=== PATIENT | female | born 1995 | race Caucasian/White ===

== ENCOUNTER 2017-09-11 19:37 | Emergency (ER) | payer OTHER ==
[2017-09-11 21:12] LABS: BASO % 0.6 % (0.0-1.0); EOS # 0.1 10^3/uL (0.0-0.50); EOS % 1.7 % (0.0-3.0); HEMATOCRIT 41.5 % (36.0-47.0); HEMOGLOBIN 14.2 g/dl (12.0-16.0); IMMATURE GRANULOCYTE % 0.2 % (0-3.0); LYMPH # 2.1 10^3/uL (1.5-6.5); LYMPH % 39.5 % (24.0-44.0); MEAN CORPUSCULAR HEMOGLOBIN 29.3 pg (27.0-33.0); MEAN CORPUSCULAR HGB CONC 34.2 g/dl (32.0-36.5); MEAN CORPUSCULAR VOLUME 85.6 fl (80.0-96.0); MONO # 0.7 10^3/uL (0.0-0.8); MONO % 12.7 % (0.0-5.0); NEUTROPHILS # 2.4 10^3/uL (1.8-7.7); NEUTROPHILS % 45.3 % (36.0-66.0); PLATELET COUNT, AUTOMATED 240 10^3/uL (150-450); RED BLOOD COUNT 4.85 10^6/uL (4.00-5.40); RED CELL DISTRIBUTION WIDTH 12.1 % (11.5-14.5); WHITE BLOOD COUNT 5.2 10^3/uL (4.0-10.0)
[2017-09-11 21:15] LABS: KETONE, URINE AUTO RFX NEGATIVE (NEGATIVE); LEUKOCYTE ESTERASE UR AUTO RFX NEGATIVE (NEGATIVE); MUCUS, URINE RFX SMALL (NEGATIVE); NITRITE, URINE AUTO RFX NEGATIVE (NEGATIVE); RBC, URINE AUTO RFX 2 /HPF (0-3); SPECIFIC GRAVITY UR AUTO RFX 1.011 (1.002-1.035); SQUAM EPITHELIAL CELL UR AURFX 2 /HPF (0-6); WBC, URINE AUTO RFX 0 /HPF (0-3)
[2017-09-11] MEDS: NS 1,000 ML IV (21:23)
[2017-09-11] MEDS: GI COCKTAIL 50ML BTL(HYOSCYAMINE/MAALOX/LIDOCAINE VISCOUS)(1:3:1) PO (21:23)
[2017-09-11] MEDS: ONDANSETRON 4MG/2ML VIAL (J2405) IV (21:23)
[2017-09-11 21:27] LABS: CONTROL LINE HCG INT CTR LINE PRESENT; HCG, SERUM QUALITATIVE NEGATIVE (NEGATIVE)
[2017-09-11 21:37] LABS: ALBUMIN 4.1 GM/DL (3.2-5.2); ALBUMIN/GLOBULIN RATIO 0.98 (1.00-1.93); ALKALINE PHOSPHATASE 47 U/L (45-117); ALT/SGPT 15 U/L (12-78); AMYLASE 27 U/L (25-115); ANION GAP 6 MEQ/L (8-16); AST/SGOT 19 U/L (7-37); BILIRUBIN,DIRECT 0.1 MG/DL (0.0-0.2); BILIRUBIN,TOTAL 0.5 MG/DL (0.2-1.0); BLOOD UREA NITROGEN 9 MG/DL (7-18); CALCIUM LEVEL 8.7 MG/DL (8.5-10.1); CARBON DIOXIDE LEVEL 28 MEQ/L (21-32); CHLORIDE LEVEL 106 MEQ/L (98-107); GLOMERULAR FILTRATION RATE > 60.0 (>60); GLUCOSE, FASTING 86 MG/DL (70-100); LIPASE 136 U/L (73-393); POTASSIUM SERUM 3.3 MEQ/L (3.5-5.1); SODIUM LEVEL 140 MEQ/L (136-145); TOTAL PROTEIN 8.3 GM/DL (6.4-8.2)
[2017-09-11] MEDS: POTASSIUM CHLORIDE 10 MEQ SR TABLET PO (22:02)
[2017-09-11 22:14] LABS: MAGNESIUM LEVEL 2.1 MG/DL (1.8-2.4)
[2017-09-11] MEDS ORDERED: ISOVUE-370 76% 100ML VIAL (Q9967) As Ordered (22:20)
== END 2017-09-11 23:40 | disposition home or self-care (01) ==
LOC: M ED 19:37
DX: K52.9 Noninfective gastroenteritis and colitis, unspecified (principal)
CPT/HCPCS: J2405

== ENCOUNTER → 2019-05-23 | Outpatient (CLI) | payer MEDICAID, OTHER ==
[~2019-05-23] MED LIST: PREVTAB2 PO; ZOFR4TAB14 PO
--- NOTE | 2019-05-23 16:14 | REP ---
OB ULTRASOUND: Real-time sonographic evaluation of the gravid uterus performed. There is a single living intrauterine gestation. Estimated gestational age is 18 weeks 4 days, EDC 10/20/2019. Today's measurements indicate appropriate growth. BPD 41 mm = 18 weeks 4 days, 40th percentile HC 155 mm = 18 weeks 3 days, 45th percentile AC 135 mm = 18 weeks 6 days, 57th percentile FL 27 mm = 18 weeks 1 days, 39th percentile HC/AC ratio 1.15, within normal range. Estimated weight 246 grams, 45th percentile. Cervix is closed and measures 3.0 cm in length. heart rate 147 beats per minute. SEEN/GROSSLY UNREMARKABLE Lateral ventricles yes Posterior fossa yes Upper lip yes Four-chamber heart yes LVOT yes RVOT yes Stomach yes Cord insertion yes Three vessel cord yes Kidneys yes Bladder yes Spine yes position: Breech. Placenta: Anterior and grade 1 with on previa or abruption. Amniotic fluid: Within normal limits. Electronically Signed by Efra Mckee MD 05/24/2019 11:24 A
== END ==
LOC: M RAD 14:15
PROVIDERS: ATTEND Advanced Practice Midwife
DX: Z34.02 Encounter for supervision of normal first pregnancy, second trimester (principal); Z3A.18 18 weeks gestation of pregnancy

== ENCOUNTER → 2019-09-28 | Outpatient (REF) | payer OTHER | LOC: M SFHCWAGY 09:57 | PROVIDERS: ATTEND Advanced Practice Midwife | DX: Z34.03 Encounter for supervision of normal first pregnancy, third trimester (principal) ==

== ENCOUNTER → 2019-10-17 | Outpatient (REF) | payer OTHER | LOC: M PLALAB 10:57 | PROVIDERS: ATTEND Advanced Practice Midwife | DX: Z34.03 Encounter for supervision of normal first pregnancy, third trimester (principal) ==

== ENCOUNTER 2019-10-26 12:18 | Inpatient (IN) | payer OTHER ==
[~2019-10-26] VITALS: Ht 160 cm; Wt 78.6 kg
[2019-10-26 12:49] VITALS: BP 127/74
[2019-10-26] MEDS ORDERED: LACTATED RINGER'S 1000 ML IV STA (13:09)
[2019-10-26 13:26] LABS: HEMATOCRIT 35.7 % (36.0-47.0); HEMOGLOBIN 11.9 g/dl (12.0-15.5); MEAN CORPUSCULAR HEMOGLOBIN 27.9 pg (27.0-33.0); MEAN CORPUSCULAR HGB CONC 33.3 g/dl (32.0-36.5); MEAN CORPUSCULAR VOLUME 83.8 fl (80.0-96.0); PLATELET COUNT, AUTOMATED 198 10^3/uL (150-450); RED BLOOD COUNT 4.26 10^6/uL (4.00-5.40); WHITE BLOOD COUNT 9.7 10^3/uL (4.0-10.0)
--- NOTE | 2019-10-26 13:26 | HPEPDOC ---
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 BREAST: . ABDOMEN: Gravid and non-tender to touch. FETUS: Is vertex (VTX) by sterile vaginal examination (SVE), fetus is vertex (VTX) by Neil. HEART RATE: Regular rate and rhythm. LUNGS: Clear to auscultation (CTA). EXTREMITIES: No edema. No clonus. Deep tendon reflexes (DTRs) + 2. Laboratory Data 24H LABS Laboratory Tests 2 10/26/19 12:32: Serology Scanned Report Hepatitis B Testing Pertinent Laboratoy Data Blood Type: A+ RBC Antibody Screen: Negative HIV: Negative Hepatitis B: Negative Hepatitis C: Negative Rapid Plasma Reagin: Nonreactive Rubella: Immune Chlamydia/Gonorrhea: Negative Group B Streptococcus: Negative Glucose Tolerance Test: 106 Anatomy Ultrasound Ultrasound Date: May 23, 2019 Placenta Location: Anterior Normal Anatomy: Yes Placenta Previa: No Estimated Weight (grams): 246 (45%) Other Ultrasounds 03/29/2019 dating EGA 10w6d FH 166 09/14/2019 presentation vertex Steroid Therapy Steroid Therapy: No Vaginal Examination Dilation: Fingertip Effacement: 50% Station: -3 Cervical Consistency: Medium Cervical Position: Posterior Presentation: Cephalic presentation Assessment Heart Rate (FHR): 145 Variability: Moderate Accelerations: Positive Decelerations: None Tocometer Contractions: No Strength: palpated as mild Multi-drug resistant Organism: No history of MDRO Assessment/Plan Assessment Harsh is a 24-year-old (G)1 para (P)0-0-0-0 at 40+6 weeks by 10-week ultrasound. Presents to Labor and Delivery (L&D) for post term induction of labor. Denies regular UC, LOF, bleeding. Reports good activity. Plan Admit and orien per consult Dr Almaraz Fuel Oil Clerk and consent. Diet: regular. Group B Streptococcus (GBS) negative. Labs and intravenous (IV) per unit protocol. Counseled on misoprostol, Pitocin and induction of labor (IOL). Lactated Ringers (LR): Bolus 500 mL, then at saline lock. Plans epidural for labor coping Anticipate normal spontaneous delivery (). C-S as appropriate. Svetlana Kramer CNM Oct 26, 2019 13:25
[2019-10-26] MEDS: miSOPROStol 50 MCG 1/2 TAB (S0191) PO SCH ×3 (14:17→23:08)
[2019-10-26 14:23] VITALS: BP 113/61
[2019-10-26 15:41] VITALS: BP 120/71
[2019-10-26 17:14] VITALS: BP 131/59
[2019-10-26 18:17] VITALS: BP 116/63
[2019-10-26 18:50] VITALS: BP 119/67
[2019-10-27] VITALS (43 sets, daily range): BP systolic 92–145; BP diastolic 52–83
[2019-10-27] MEDS: miSOPROStol 50 MCG 1/2 TAB (S0191) PO SCH (01:30)
--- NOTE | 2019-10-27 01:38 | IPNPDOC ---
Text Note Date of Service The patient was seen on 10/27/19. NOTE Progress Requesting pain/sleep medication. Rates pain -11/10 Cat I tracing. UC irregular SVE -/-2, posterior, scant bloody show Stadol/phenergan. Continue misoprostol VS,Fishbone, I+O VS, Fishbone, I+O Laboratory Tests 10/26/19 13:00 Vital Signs Date Time Temp Pulse Resp B/P (MAP) Pulse Ox O2 Delivery O2 Flow Rate FiO2 10/26/19 18:50 90 16 119/67 (84) 10/26/19 15:41 98.9 Svetlana Kramer CNM Oct 27, 2019 01:38
[2019-10-27] MEDS ORDERED: BUTORPHANOL 2 MG/ML INJ (J0595) IV ONE (01:45)
[2019-10-27] MEDS ORDERED: PROMETHAZINE INJ 25 MG/ML VIAL (J2550) IV ONE (01:45)
[2019-10-27] MEDS ORDERED: FENTANYL 2MCG/ML ROPIVACAINE 0.2% IN 0.9% NACL 100ML IVBAG As Ordered ONE (08:55)
[2019-10-27] MEDS: LR 1,000 ML IV SCH ×3 (09:20→15:31)
[2019-10-27] MEDS ORDERED: EPIDURAL/PCA KEYS XX PRN (09:45)
[2019-10-27] MEDS ORDERED: REFRIGERATOR IV KEYS XX PRN (09:45)
[2019-10-27] MEDS ORDERED: diphenhydrAMINE 50MG/ML VIAL (J1200) IV PRN (09:45)
[2019-10-27] MEDS ORDERED: FENTANYL/ROPIVACAINE/NACL BAG 100 ML EPIDURAL SCH (09:45)
[2019-10-27] MEDS ORDERED: EPIDURAL COMMENT XX SCH (09:45)
[2019-10-27] MEDS ORDERED: LACTATED RINGER'S 1000 ML IV PRN (09:45)
[2019-10-27] MEDS ORDERED: NALOXONE INJ 0.4MG/1ML VIAL (J2310 PER 1MG) IV PRN (09:45)
[2019-10-27] MEDS ORDERED: ONDANSETRON 4MG/2ML VIAL IV PRN (09:45)
[2019-10-27] MEDS: ePHEDrine SULFATE 25 MG/5 ML(5MG/ML) SYRINGE IV PRN ×3 (10:26→10:33)
[2019-10-27] MEDS ORDERED: LR 1,000 ML IV SCH (11:05)
[2019-10-27] MEDS ORDERED: OXYTOCIN 30 UNITS IN 0.9% NaCl 500ML IV BAG (J2590) As Ordered ONE (11:06)
[2019-10-27] MEDS ORDERED: OXYTOCIN DRIP 30 UNITS in IV 1 EA IV SCH ×2 (11:15→18:00)
--- NOTE | 2019-10-27 17:41 | DNPDOC ---
[facility] Delivery Note Delivery Note DATE OF DELIVERY: 10/27/2019 TIME OF : 1657 GENDER:, Female. APGARS: 8 and 9. WEIGHT:, 3460 grams or 7 pounds 10 ounces. LACERATIONS:. First degree midline laceration and right labial ANESTHESIA: Epidural. ESTIMATED BLOOD LOSS: 300ml COUNTS: 5 laparotomy sponges accounted for prior to after delivery. One sharps removed delivery field. DELIVERY NOTE: 10/27/2019, Mrs. Arellano a 24-year-old 1, now para 1, had a spontaneous vaginal delivery of viable female , Apgars, Apgars 8 and 9. Weight was 3460 g or 7 lbs. 7 oz. Head was delivered [occiput anterior (OA). Nuchal cord was manually reduced followed by delivery of the shoulders and corpus. was handed to mom with a good cry. Cord was clamped times two and was cut by the father of baby under my direction. Placenta was then drained and delivered grossly intact. A premixed bag of 500 mL of normal saline with 30 units of Pitocin was then bolused along with uterine massage until the uterus was firm. On inspection,. There was a right labial and first-degree midline laceration which was repaired with 3-0 Vicryl. On reinspection, cervix, vagina, perineum was grossly intact and hemostatic. Mom and baby in recovery on stable condition. The couples decided to remain in daughter, LAURE Gray MD. Oct 27, 2019 17:41
[2019-10-27] MEDS ORDERED: MOM 30ML SUSPENSION UDC PO PRN (17:45)
[2019-10-27] MEDS ORDERED: METHYLERGONOVINE MALEATE 0.2 MG TAB PO PRN (17:45)
[2019-10-27] MEDS ORDERED: IBUPROFEN 600 MG TAB PO PRN (17:45)
[2019-10-27] MEDS ORDERED: ACETAMINOPHEN 500 MG TAB PO PRN (17:45)
[2019-10-27] MEDS ORDERED: RHOGAM 300 MCG (1500 IU) INJ (J2790) IM SCH (17:45)
[2019-10-27] MEDS ORDERED: IBUPROFEN 800 MG TAB PO PRN (17:45)
[2019-10-27] MEDS ORDERED: DOCUSATE SODIUM 100 MG CAP PO PRN (17:45)
[2019-10-27] MEDS ORDERED: MEASLES,MUMPS,RUBELLA VACCINE INJ (MMR-II) (90707) SC SCH (17:45)
[2019-10-27] MEDS ORDERED: ACETAMINOPHEN TAB 650MG DOSE (2X325MG) PO PRN (17:45)
[2019-10-27] MEDS ORDERED: DIBUCAINE 1% OINTMENT 30GM TOP PRN (17:45)
[2019-10-27] MEDS ORDERED: ANUSOL HC CREAM 30GM TOP PRN (17:45)
[2019-10-27] MEDS ORDERED: SLF 3 ML SYR IV PRN (19:30)
[2019-10-27] MEDS: SLF 3 ML SYR IV SCH (21:32)
[2019-10-28 06:00] VITALS: BP 108/56
[2019-10-28] MEDS: SLF 3 ML SYR IV SCH ×3 (06:00→22:00)
[2019-10-28] MEDS: PRENATAL VITAMINS CHEWABLE TABLET PO SCH (08:10)
--- NOTE | 2019-10-28 13:52 | IPNPDOC ---
Progress Note Date of Service: Oct 28, 2019 Day#: 1 Progress Note SUBJECT: Harsh is a 24-year-old status post uncomplicated spontaneous vaginal delivery at 41 weeks' gestation at 1657 on 10/27/19 of a living female weighting 7 pounds 10 ounces/3460 grams with post vaginal laceration and repair of a 1st degree midline laceration and right labial laceration. She is doing well and has been ambulating, voiding spontaneously without issue and tolerating regular diet. Breast feeding without issue. OBJECTIVE: VITAL SIGNS: Within normal limits, afebrile. Alert and oriented times three. Breath sounds clear to auscultation. Heart rate: Regular rate and rhythm, no murmurs, rubs or gallops. Abdomen: Fundus firm at U-1. Soft, NTTP. Minimal lochia. ASSESSMENT: Day 1 PLAN: 1. Discharge to home tomorrow. 2. Tylenol and Motrin for pain. 3. Encourage breast feeding and ambulation. VS, I&O, 24H, Fishbone Vital Signs/I&O Vital Signs Date Time Temp Pulse Resp B/P (MAP) Pulse Ox O2 Delivery O2 Flow Rate FiO2 10/28/19 06:00 98.7 79 20 108/56 (73) 99 Room Air I&O- Last 24 Hours up to 6 AM 10/28/19 05:59 Intake Total 6020.1 ml Output Total 2475 ml Balance 3545.1 ml ELIAS BALES CNM Oct 28, 2019 13:51
[2019-10-28 18:00] VITALS: BP 115/72
[2019-10-29 06:00] VITALS: BP 119/67
[2019-10-29] MEDS: SLF 3 ML SYR IV SCH (06:00)
[2019-10-29] MEDS: PRENATAL VITAMINS CHEWABLE TABLET PO SCH (08:42)
[2019-10-29] MEDS ORDERED: IBUP80TA PO (11:38)
[2019-10-29] MEDS ORDERED: ACET-683 PO (11:38)
== END 2019-10-29 12:05 | disposition home or self-care (01) | DRG 560 ==
LOC: M LDI 12:18 → M OBS 10-27 19:03
PROVIDERS: ADMIT Advanced Practice Midwife; ATTEND Obstetrics & Gynecology
PROC: 3E0P7GC Introduction of Other Therapeutic Substance into Female Reproductive, Via Natural or Artificial Opening (ICD-10-PCS; 2019-10-26)
PROC: 10E0XZZ Delivery of Products of Conception, External Approach (ICD-10-PCS; principal; 2019-10-27)
PROC: 0HQ9XZZ Repair Perineum Skin, External Approach (ICD-10-PCS; 2019-10-27)
DX: O48.0 Post-term pregnancy (principal); O70.0 First degree perineal laceration during delivery; Z3A.40 40 weeks gestation of pregnancy; Z37.0 Single live birth

== ENCOUNTER → 2020-06-18 | Outpatient (CLI) | payer BC ==
[~2020-06-18] MED LIST changes: +ACET-683 PO; +IBUP80TA PO
--- NOTE | 2020-06-18 16:24 | REP ---
INDICATION: ANATOMY. Supervision of . COMPARISON: None. TECHNIQUE: Transabdominal obstetric sonography. FINDINGS: Scanning through the gravid uterus demonstrates a viable single intrauterine gestation in breech lie. motion is observed and heart rate is recorded at 140 beats per minute. A posterior placenta is seen, grade 1, without evidence of placenta previa. Amniotic fluid is subjectively normal. Closed cervical length is measured at 3.9 cm transabdominally. No extrauterine abnormality is observed. Amniotic fluid is subjectively normal. No anomaly is seen. The following anatomic structures are identified and felt to be sonographically unremarkable: cranium, choroid plexus, cavum, cerebellum and posterior fossa, face and profile, lungs, four-chamber heart with left and right ventricular outflow tract views, diaphragm, left-sided stomach, abdominal wall cord insertion, three-vessel umbilical cord, kidneys and bladder, spine, and upper and lower extremities. Biometry chart: BPD 4.1 cm, 18 weeks 3 days Head circumference 16.3 cm, 19 weeks 0 days Abdominal circumference 14.5 cm, 19 weeks 6 days Femur length 3.2 cm, 19 weeks 6 days Humeral length 3.1 cm, 20 weeks 2 days HC AC ratio normal 1.12 Cephalic index normal 0.67 (0.70-0.86 close) Estimated weight 306 g, 0 lb 10 oz, 83rd percentile for 19 weeks 0 days IMPRESSION: Viable single intrauterine gestation at 19 weeks 3 days by today's composite sonographic criteria. HARSHA by today's sonography November 09, 2020. No complication identified. anatomic survey is felt to be complete. <Electronically signed by Prashant Winston > 06/18/20 9917
== END ==
LOC: M WHC 13:57
PROVIDERS: ATTEND Advanced Practice Midwife
DX: Z34.82 Encounter for supervision of other normal pregnancy, second trimester (principal)

== ENCOUNTER → 2020-10-17 | Outpatient (REF) | payer BC | LOC: M SFHCWAGY 17:18 | PROVIDERS: ATTEND Advanced Practice Midwife | DX: Z36.89 Encounter for other specified antenatal screening (principal) ==

== ENCOUNTER → 2020-11-12 | Outpatient (CLI) | payer BC | LOC: M LABSMTC 11:27 | PROVIDERS: ATTEND Specialist | DX: Z20.822 Contact with and (suspected) exposure to COVID-19 (principal) ==

== ENCOUNTER 2020-11-14 08:09 | Inpatient (IN) | payer BC ==
[~2020-11-14] VITALS: Ht 162.6 cm; Wt 77.4 kg
[2020-11-14] VITALS (29 sets, daily range): BP systolic 91–134; BP diastolic 51–85
[2020-11-14] MEDS ORDERED: PRENTAB9 PO (08:27)
[2020-11-14] MEDS ORDERED: LACTATED RINGER'S 1000 ML IV STA (08:53)
[2020-11-14] MEDS ORDERED: OXYTOCIN DRIP 30 UNITS in IV 1 EA IV PRN (08:55)
[2020-11-14] MEDS ORDERED: LIDOCAINE 1% MDV 20ML VIAL INFIL PRN (08:55)
[2020-11-14] MEDS ORDERED: METHYLERGONOVINE MALEATE 0.2 MG/ML VIAL (J2210) IM PRN (08:55)
[2020-11-14] MEDS ORDERED: miSOPROStol 50MCG 1/2 TABLET PO ONE (09:00)
--- NOTE | 2020-11-14 09:09 | HPEPDOC ---
Obstetrical History & Physical General Date of Admission November 14, 2020 at 08:09 History of Present Illness Chief Complaint: Induction of labor Information Provided By: Patient Age: 25 : 2 Term: 1 Pre-term: 0 Abortions: 0 Livin Care Care: Good Care Dating Final EDC by: 1st trimester (US) EGA at Admission: 40 (+2) Antepartum Course Pre- weight (lbs.): 151 Admission Weight (lbs.): 171 Past Medical History Past Obstetrical History : Past Obstetrical History: Primgravida (2019) Type of Delivery: Spontaneous Vaginal Del. 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: No pertinent history Past Medical History Surgical History: Denies/None Family History Significant Family History: No pertinent family hx Social History Marital Status: Family situation: Spouse/partner home Psychosocial History: No pertinent psych hx * Smoker: non-smoker Alcohol: Denies Drugs: denies Abuse Violence Screening Have you been hit/kicked/slapp: No Have you been sexually assault: No Imunizations Tdap status: declined Allergies Coded Allergies: No Known Allergies (Unverified , 10/26/19) Medications Scheduled No.137/Iron/Folic Acd ( Vitamin Tablet) 1 Each Tablet, 1 TAB PO DAILY Physical Examination Physical Examination GENERAL: Alert and oriented times three. BREAST: . ABDOMEN: Gravid and non-tender to touch. FETUS: Is vertex (VTX) by sterile vaginal examination (SVE), fetus is vertex (VTX) by Neil. EFW 7.5-8# HEART RATE: Regular rate and rhythm. LUNGS: Clear to auscultation (CTA). EXTREMITIES: No edema. No clonus. Deep tendon reflexes (DTRs) + 2. Laboratory Data 24H LABS Laboratory Tests 2 11/14/20 08:47: Serology Scanned Report Hepatitis B Testing Pertinent Laboratoy Data Blood Type: A+ RBC Antibody Screen: Negative HIV: Negative Hepatitis B: Negative Hepatitis C: Negative Rapid Plasma Reagin: Nonreactive Rubella: Immune Chlamydia/Gonorrhea: Negative Group B Streptococcus: Negative Quad Screen Test: Declined Glucose Tolerance Test: 94 Anatomy Ultrasound Ultrasound Date: Jun 18, 2020 Placenta Location: Posterior Normal Anatomy: Yes Placenta Previa: No Estimated Weight (grams): 306 (83%) Other Ultrasounds 03/19/2020 6w 0d HARSHA 11/12/2020 Steroid Therapy Steroid Therapy: No Vaginal Examination Dilation: 3 cm Effacement: 50% Station: -2 Cervical Consistency: Medium Cervical Position: Middle Presentation: Cephalic presentation Assessment Heart Rate (FHR): 145 Variability: Moderate Accelerations: Positive Decelerations: None Tocometer Contractions: No Assessment/Plan Assessment Harsh is a 25-year-old (G)2 para (P)1-0-0-1 at 40+2 weeks by 6-week ultrasound. Presents to Labor and Delivery (L&D) postdates induction of labor. Reports good movement. Denies LOF, bleeding or regular UC. has been complicated by close interconceptual spacing. Last delivery 10/27/2019. Plan Admit and orient. Mash Grinder and consent per consult Dr Joiner Diet: regular Group B Streptococcus (GBS) negative Labs and intravenous (IV) per unit protocol. Counseled on misoprostol, Pitocin and induction of labor (IOL). Lactated Ringers (LR): Bolus 500 mL, then saline lock. Plans epidural Anticipate normal spontaneous delivery () C-S as appropriate. Svetlana Kramer CNM November 14, 2020 09:03
[2020-11-14 09:34] LABS: MEAN CORPUSCULAR HEMOGLOBIN 24.7 pg (27.0-33.0); MEAN CORPUSCULAR HGB CONC 31.3 g/dl (32.0-36.5); PLATELET COUNT, AUTOMATED 194 10^3/uL (150-450); RED BLOOD COUNT 4.05 10^6/uL (4.00-5.40); WHITE BLOOD COUNT 8.3 10^3/uL (4.0-10.0)
[2020-11-14] MEDS ORDERED: OXYTOCIN DRIP 30 UNITS in IV 1 EA IV SCH ×2 (13:35→20:35)
[2020-11-14] MEDS ORDERED: LR 1,000 ML IV SCH (13:35)
[2020-11-14] MEDS ORDERED: FENTANYL 2MCG/ML ROPIVACAINE 0.2% IN 0.9% NACL 100ML IVBAG As Ordered ONE (15:19)
[2020-11-14] MEDS ORDERED: EPIDURAL/PCA KEYS XX PRN (16:05)
[2020-11-14] MEDS ORDERED: LACTATED RINGER'S 1000 ML IV PRN (16:05)
[2020-11-14] MEDS ORDERED: diphenhydrAMINE 50MG/ML VIAL (J1200) IV PRN (16:05)
[2020-11-14] MEDS ORDERED: ONDANSETRON 4MG/2ML VIAL IV PRN (16:05)
[2020-11-14] MEDS ORDERED: FENTANYL/ROPIVACAINE/NACL BAG 100 ML EPIDURAL SCH (16:05)
[2020-11-14] MEDS ORDERED: REFRIGERATOR IV KEYS XX PRN (16:05)
[2020-11-14] MEDS ORDERED: ePHEDrine SULFATE 25 MG/5 ML(5MG/ML) SYRINGE IV PRN (16:05)
[2020-11-14] MEDS ORDERED: NALOXONE INJ 0.4MG/1ML VIAL (J2310 PER 1MG) IV PRN (16:05)
[2020-11-14] MEDS ORDERED: EPIDURAL COMMENT XX SCH (16:05)
--- NOTE | 2020-11-14 17:27 | IPNPDOC ---
Text Note Date of Service The patient was seen on 11/14/20. NOTE Progress Comfortable with epidural Reports "feeling a pop" 10-15 minutes ago, pad appears dry at this time Cat I tracing, early decels UC 2-4 minutes x 45-60 seconds SVE /-1, AROM for small amount clear fluid Anticipate NSVB VS,Fishbone, I+O VS, Fishbone, I+O Laboratory Tests 11/14/20 09:07 Vital Signs Date Time Temp Pulse Resp B/P (MAP) Pulse Ox O2 Delivery O2 Flow Rate FiO2 11/14/20 14:14 98.6 131 16 120/60 (80) Room Air Svetlana Kramer CNM November 14, 2020 17:27
[2020-11-14] MEDS ORDERED: IBUPROFEN 800 MG TAB PO PRN (20:35)
[2020-11-14] MEDS ORDERED: ANUSOL HC CREAM 30GM TOP PRN (20:35)
[2020-11-14] MEDS ORDERED: IBUPROFEN 600MG TAB PO PRN (20:35)
[2020-11-14] MEDS ORDERED: DOCUSATE SODIUM 100MG CAPSULE PO PRN (20:35)
[2020-11-14] MEDS ORDERED: DIBUCAINE 1% OINTMENT 30GM TOP PRN (20:35)
[2020-11-14] MEDS ORDERED: MEASLES,MUMPS,RUBELLA VACCINE INJ (MMR-II) (90707) SC SCH (20:35)
[2020-11-14] MEDS ORDERED: ACETAMINOPHEN TAB 650MG DOSE (2X325MG) PO PRN (20:35)
[2020-11-14] MEDS ORDERED: RHOGAM 300 MCG (1500 IU) INJ (J2790) IM SCH (20:35)
[2020-11-14] MEDS ORDERED: MOM 30ML SUSPENSION UDC PO PRN (20:35)
[2020-11-14 20:39] LABS: CORD GAS ABE A -8.3; CORD GAS HCO3 A 19.7 MEQ/L; CORD GAS O2 SAT A 81.4 %; CORD GAS PCO2 A 49.9 mmHg; CORD GAS PH A 7.215 UNITS; CORD GAS PO2 A 46.7 mmHg; CORD GAS SBC A 17.6 MEQ/L; CORD GAS TCO2 A 21.3 MEQ/L
[2020-11-14 20:40] LABS: CORD GAS ABE V -0.9; CORD GAS HCO3 V 21.6 MEQ/L; CORD GAS O2 SAT V 95.9 %; CORD GAS PCO2 V 30.4 mmHg; CORD GAS PH V 7.469 UNITS; CORD GAS PO2 V 58.6 mmHg; CORD GAS SBC V 23.7 MEQ/L; CORD GAS TCO2 V 22.5 MEQ/L
--- NOTE | 2020-11-14 20:46 | DNPDOC ---
[facility] Delivery Note Delivery Note DATE OF DELIVERY: 11/14/2020 PREDELIVERY DIAGNOSIS: 40+2/7 weeks' gestation and labor. POST DELIVERY DIAGNOSIS: Delivered. PROCEDURE: Spontaneous vaginal delivery. PROVIDER: Svetlana Kramer CNM ANESTHESIA: Epidural. ESTIMATED BLOOD LOSS: 1000 mL. FINDINGS: 8 pound 0 ounce female infant, Score 9/9, nuchal cord times 2 loose, reduced prior to delivery. DELIVERY SUMMARY: Patient is a 25-year-old 2 now para 2-0-0-2 who was admitted to labor and delivery for term induction of labor. She received misoprostol and IV pitocin and labor progressed. She utilized an epidural for labor coping. SROM 1715 clear fluid. Fully dilated 184. Viable female child delivered NIRAV, restituted to LOP after reduction of double nuchal cord @ 2007. Shoulders delivered easily after maternal position change. Transitioned on maternal abdomen. Cord gases obtained. Cord doubly clamped and cut once pulsations ceased by FOB under my direction. Apgars 9/9. Placenta padron, intact with 3 vessel cord followed by large gush of blood. Fundus firmed with massage, IV bolus premixed pitocin solution and misoprostol 1000mcg [place]. EBL 1000ml. Cervix, vagina and perineum intact. Sponge, sharp and instrument count correct. Svetlana Kramer CNM November 14, 2020 20:46
[2020-11-14] MEDS: METHYLERGONOVINE MALEATE 0.2 MG TAB PO SCH (21:02)
[2020-11-14] MEDS: ACETAMINOPHEN 500 MG TAB PO PRN (22:00)
[2020-11-14] MEDS ORDERED: LR 500 ML IV ONE (22:05)
[2020-11-15 00:04] VITALS: BP 117/59
[2020-11-15] MEDS: FERROUS SULFATE 325MG TAB PO SCH ×3 (00:13→20:57)
[2020-11-15] MEDS: METHYLERGONOVINE MALEATE 0.2 MG TAB PO SCH ×3 (02:42→15:00)
[2020-11-15] MEDS: ACETAMINOPHEN 500 MG TAB PO PRN ×2 (05:21→11:19)
[2020-11-15 05:41] VITALS: BP 112/65
--- NOTE | 2020-11-15 08:07 | IPNPDOC ---
Text Note Date of Service The patient was seen on 11/15/20. NOTE PP #1 Feels well. Adequate pain management. Voiding. Has been OOB showered without dizziness or lightheadedness VSS, afebrile and normotensive Breasts soft Fundus firm, NT, down 1 FB Lochia rubra light without odor Perineum intact PP #1, PPH Routine care. CBC pending. Anticipate D/C in am VS,Fishbone, I+O VS, Fishbone, I+O Laboratory Tests 11/14/20 09:07 Vital Signs Date Time Temp Pulse Resp B/P (MAP) Pulse Ox O2 Delivery O2 Flow Rate FiO2 11/15/20 05:41 98.4 87 14 112/65 (81) 99 Room Air I&O- Last 24 Hours up to 6 AM 11/15/20 06:00 Intake Total 2781.3 ml Output Total 2100 ml Balance 681.3 ml Svetlana Kramer CNM November 15, 2020 08:07
[2020-11-15 08:54] LABS: HEMATOCRIT 28.2 % (36.0-47.0); HEMOGLOBIN 8.6 g/dl (12.0-15.5); MEAN CORPUSCULAR HEMOGLOBIN 24.1 pg (27.0-33.0); MEAN CORPUSCULAR HGB CONC 30.5 g/dl (32.0-36.5); PLATELET COUNT, AUTOMATED 167 10^3/uL (150-450); RED BLOOD COUNT 3.57 10^6/uL (4.00-5.40); WHITE BLOOD COUNT 11.4 10^3/uL (4.0-10.0)
[2020-11-15] MEDS: PRENATAL VITAMINS CHEWABLE TABLET PO SCH (09:08)
[2020-11-15 18:00] VITALS: BP 114/57
[2020-11-15] MEDS ORDERED: METHYLERGONOVINE MALEATE 0.2 MG TAB PO PRN (18:00)
[2020-11-16 06:00] VITALS: BP 124/67
[2020-11-16] MEDS: PRENATAL VITAMINS CHEWABLE TABLET PO SCH (08:15)
[2020-11-16] MEDS: FERROUS SULFATE 325MG TAB PO SCH (08:15)
[2020-11-16] MEDS ORDERED: DOK1CAP7 PO (11:54)
[2020-11-16] MEDS ORDERED: IBUP80TA PO (11:54)
--- NOTE | 2020-11-16 13:09 | IPNPDOC ---
Progress Note Date of Service: November 16, 2020 Day#: 2 Progress Note PPD 2 SUBJECT: Harsh is a 25yo s/p uncomplicated at 40w2d after undergoing IOL at term, doing well day # 2. She has been ambulating, voiding spontaneously without issue and tolerating regular diet. Breast feeding without issue. Reports lochia is like a normal period. No f/c/n/v/CP/SOB. OBJECTIVE: VITAL SIGNS: Within normal limits, afebrile. Alert and oriented times three. Abdomen: Fundus firm at U-2. Soft, NTTP. Extremities: no pain with palpation of calves ASSESSMENT: Harsh is a 25yo s/p uncomplicated at 40w2d after undergoing IOL at term, doing well day # 2. Vitals within normal limits, afebrile, hemodynamically stable with no evidence of infection. PLAN: 1. Discharge to home today. 2. Tylenol and Motrin for pain. 3. Regular diet 4. No heavy lifting, vaginal rest 6 weeks 5. Encourage breast feeding and ambulation. 6. Undecided on contraception, will consider more and re-address at 6wk PP visit 7. Routine PP visit in 6 weeks in clinic. 8. Discussed return precautions at length. Elizabeth Joiner MD VS, I&O, 24H, Fishbone Vital Signs/I&O Vital Signs Date Time Temp Pulse Resp B/P (MAP) Pulse Ox O2 Delivery O2 Flow Rate FiO2 11/16/20 06:00 97.7 85 14 124/67 (86) 11/15/20 18:00 98 Room Air I&O- Last 24 Hours up to 6 AM 11/16/20 06:00 Intake Total 560 ml Balance 560 ml Elizabeth Joiner MD November 16, 2020 13:09
--- NOTE | 2020-11-16 13:12 | DS.PDOC ---
Discharge Summary General Date of Admission November 14, 2020 at 08:09 Date of Discharge November 16, 2020 Discharge Summary PROCEDURES PERFORMED DURING STAY: spontaneous vaginal delivery ADMITTING DIAGNOSES: 1. IOL at term DISCHARGE DIAGNOSES: 1. IOL at term COMPLICATIONS/CHIEF COMPLAINT: Induction Of Labor. HISTORY OF PRESENT ILLNESS/HOSPITAL COURSE: Harsh is a 25yo s/p uncomplicated at 40w2d after undergoing IOL at term, doing well day # 2. She had a benign course and at time of discharge, vitals were within normal limits, afebrile, hemodynamically stable with no evidence of infection. DISCHARGE MEDICATIONS: Please see below. ALLERGIES: Please see below. PHYSICAL EXAMINATION ON DISCHARGE: VITAL SIGNS: Within normal limits, afebrile. Alert and oriented times three. Abdomen: Fundus firm at U-2. Soft, NTTP. Extremities: no pain with palpation of calves LABORATORY DATA: Please see below. DISCHARGE INSTRUCTIONS: 1. Discharge to home today. 2. Tylenol and Motrin for pain. 3. Regular diet 4. No heavy lifting, vaginal rest 6 weeks 5. Encourage breast feeding and ambulation. 6. Undecided on contraception, will consider more and re-address at 6wk PP visit 7. Routine PP visit in 6 weeks in clinic. 8. Discussed return precautions at length. DISCHARGE CONDITION: Stable TIME SPENT ON DISCHARGE: Greater than 20 minutes. Elizabeth Joiner MD Vital Signs/I&Os Vital Signs Date Time Temp Pulse Resp B/P (MAP) Pulse Ox O2 Delivery O2 Flow Rate FiO2 11/16/20 06:00 97.7 85 14 124/67 (86) 11/15/20 18:00 98 Room Air I&O- Last 24 Hours up to 6 AM 11/16/20 06:00 Intake Total 560 ml Balance 560 ml Discharge Medications Scheduled No.137/Iron/Folic Acd ( Vitamin Tablet) 1 Each Tablet, 1 TAB PO DAILY, (Reported) Scheduled PRN Docusate Sodium (Dok) 100 Mg Capsule, 100 MG PO BIDP PRN for CONSTIPATION Ibuprofen (Ibuprofen) 800 Mg Tablet, 800 MG PO Q8HP PRN for PAIN LEVEL 6-10 Allergies Coded Allergies: No Known Allergies (Unverified , 10/26/19) Elizabeth Joiner MD November 16, 2020 13:12
== END 2020-11-16 13:30 | disposition home or self-care (01) | DRG 560 ==
LOC: M LDI 08:09 → M OBS 11-15
PROVIDERS: ADMIT Advanced Practice Midwife; ATTEND Advanced Practice Midwife
PROC: 10E0XZZ Delivery of Products of Conception, External Approach (ICD-10-PCS; principal; 2020-11-14)
PROC: 10907ZC Drainage of Amniotic Fluid, Therapeutic from Products of Conception, Via Natural or Artificial Opening (ICD-10-PCS; 2020-11-14)
PROC: 3E033VJ Introduction of Other Hormone into Peripheral Vein, Percutaneous Approach (ICD-10-PCS; 2020-11-14)
DX: O48.0 Post-term pregnancy (principal); Z3A.40 40 weeks gestation of pregnancy; Z37.0 Single live birth; O69.81X0 Labor and delivery complicated by cord around neck, without compression, not applicable or unspecified; O43.893 Other placental disorders, third trimester; O72.0 Third-stage hemorrhage

== ENCOUNTER → 2021-02-05 | Outpatient (REF) | payer BC ==
[~2021-02-05] MED LIST changes: +DOK1CAP4 PO; +PRENTAB9 PO
== END ==
LOC: M PLALAB 16:14
PROVIDERS: ATTEND Advanced Practice Midwife
DX: Z12.4 Encounter for screening for malignant neoplasm of cervix (principal)

== ENCOUNTER 2021-12-04 21:30 | Emergency (ER) | payer BC ==
[~2021-12-04] VITALS: Ht 162.6 cm; Wt 62.7 kg
[2021-12-04] MEDS ORDERED: PRED20TA PO (21:52)
[2021-12-04] MEDS ORDERED: diphenhydrAMINE 50MG/ML VIAL (J1200) IV ONE (22:15)
[2021-12-04] MEDS ORDERED: methylPREDNISolone 125MG 2ML VIAL IV ONE (22:15)
[2021-12-04] MEDS ORDERED: NS 1,000 ML IV ONE (22:15)
[2021-12-04] MEDS ORDERED: FAMOTIDINE 20MG/2ML VIAL IVP ONE (22:15)
[2021-12-04 23:02] LABS: BASO % 0.1 % (0.0-1.0); EOS % 0.1 % (0.0-3.0); HEMATOCRIT 39.9 % (36.0-47.0); HEMOGLOBIN 13.1 g/dl (12.0-15.5); LYMPH # 0.4 10^3/uL (1.5-5.0); LYMPH % 4.1 % (24.0-44.0); MEAN CORPUSCULAR HEMOGLOBIN 26.3 pg (27.0-33.0); MEAN CORPUSCULAR HGB CONC 32.8 g/dl (32.0-36.5); MEAN CORPUSCULAR VOLUME 80.1 fl (80.0-96.0); MONO # 0.2 10^3/uL (0.0-0.8); MONO % 1.8 % (2.0-8.0); NEUTROPHILS % 93.4 % (36.0-66.0); PLATELET COUNT, AUTOMATED 254 10^3/uL (150-450); RED BLOOD COUNT 4.98 10^6/uL (4.00-5.40); WHITE BLOOD COUNT 8.6 10^3/uL (4.0-10.0)
[2021-12-04 23:29] LABS: ALBUMIN 4.1 GM/DL (3.2-5.2); ALT/SGPT 16 U/L (12-78); BILIRUBIN,DIRECT 0.1 MG/DL (0.0-0.2); BILIRUBIN,TOTAL 0.4 MG/DL (0.2-1.0); BLOOD UREA NITROGEN 14 MG/DL (7-18); C REACTIVE PROTEIN QUANTITATIV 0.92 MG/DL (0.00-0.30); CALCIUM LEVEL 8.9 MG/DL (8.5-10.1); CARBON DIOXIDE LEVEL 23 MEQ/L (21-32); CHLORIDE LEVEL 108 MEQ/L (98-107); CREATININE FOR GFR 0.93 MG/DL (0.55-1.30); GLOMERULAR FILTRATION RATE > 60.0 (>60); GLUCOSE, FASTING 132 MG/DL (70-100); POTASSIUM SERUM 4.2 MEQ/L (3.5-5.1); SODIUM LEVEL 138 MEQ/L (136-145); TOTAL PROTEIN 8.2 GM/DL (6.4-8.2)
[2021-12-04 23:37] LABS: MONO SCRN NEGATIVE (NEGATIVE)
[2021-12-04 23:47] LABS: ERYTHROCYTE SEDIMENTATION RATE 7 mm/hr (0-20)
[2021-12-05] MEDS ORDERED: PRED10TA2 PO (00:13)
[2021-12-05] MEDS ORDERED: CETI-24 PO (00:13)
[2021-12-05 00:23] VITALS: BP 122/58
[2021-12-06] MEDS ORDERED: HYDR-643 PO (13:43)
[2021-12-06] MEDS ORDERED: FAMO10TA50 PO (13:43)
== END 2021-12-05 00:25 | disposition home or self-care (01) ==
LOC: M ED 21:30
DX: L25.9 Unspecified contact dermatitis, unspecified cause (principal)
CPT/HCPCS: 80048; 80076; 83605; 85025; 85652; 86140; 86308; 87040; 87486; 87581; 87633; 87798; 87880; 96361; 96374; 96375; 99283; J1200; J2930

== ENCOUNTER 2021-12-06 11:19 | Emergency (ER) | payer BC ==
[~2021-12-06] VITALS: Ht 162.6 cm; Wt 66.1 kg
[~2021-12-06 11:19] MED LIST changes: +CETI-24 PO; +PRED10TA2 PO; +PRED20TA PO
[2021-12-06] MEDS ORDERED: KETOROLAC 30 MG/ML 1ML VIAL IV ONE (11:50)
[2021-12-06] MEDS ORDERED: diphenhydrAMINE 50MG/ML VIAL (J1200) IV ONE (11:50)
[2021-12-06] MEDS ORDERED: NS 1,000 ML IV ONE (11:50)
[2021-12-06 12:24] LABS: BASO % 0.1 % (0.0-1.0); EOS # 0.1 10^3/uL (0.0-0.5); EOS % 0.8 % (0.0-3.0); HEMATOCRIT 36.6 % (36.0-47.0); HEMOGLOBIN 11.7 g/dl (12.0-15.5); LYMPH # 0.4 10^3/uL (1.5-5.0); LYMPH % 5.7 % (24.0-44.0); MEAN CORPUSCULAR HEMOGLOBIN 26.5 pg (27.0-33.0); MEAN CORPUSCULAR VOLUME 82.8 fl (80.0-96.0); MONO # 0.3 10^3/uL (0.0-0.8); MONO % 3.6 % (2.0-8.0); NEUTROPHILS # 6.6 10^3/uL (1.5-8.5); NEUTROPHILS % 89.3 % (36.0-66.0); PLATELET COUNT, AUTOMATED 219 10^3/uL (150-450); RED BLOOD COUNT 4.42 10^6/uL (4.00-5.40); WHITE BLOOD COUNT 7.4 10^3/uL (4.0-10.0)
[2021-12-06 12:44] LABS: ERYTHROCYTE SEDIMENTATION RATE 8 mm/hr (0-20)
[2021-12-06 12:52] LABS: ALBUMIN 3.5 GM/DL (3.2-5.2); ALT/SGPT 17 U/L (12-78); BILIRUBIN,DIRECT < 0.1 MG/DL (0.0-0.2); BILIRUBIN,TOTAL 0.3 MG/DL (0.2-1.0); BLOOD UREA NITROGEN 14 MG/DL (7-18); CALCIUM LEVEL 8.2 MG/DL (8.5-10.1); CARBON DIOXIDE LEVEL 27 MEQ/L (21-32); CHLORIDE LEVEL 111 MEQ/L (98-107); CREATININE FOR GFR 0.86 MG/DL (0.55-1.30); GLOMERULAR FILTRATION RATE > 60.0 (>60); GLUCOSE, FASTING 105 MG/DL (70-100); POTASSIUM SERUM 4.1 MEQ/L (3.5-5.1); SODIUM LEVEL 141 MEQ/L (136-145); TOTAL PROTEIN 6.9 GM/DL (6.4-8.2)
[2021-12-06 12:54] LABS: MONO REFLEX EBV COMP NEGATIVE (NEGATIVE)
[2021-12-06] MEDS ORDERED: FAMO10TA50 PO (13:43)
[2021-12-06] MEDS ORDERED: HYDR-643 PO (13:43)
[2021-12-06] MEDS ORDERED: FAMOTIDINE 20MG/2ML VIAL IVP ONE (13:45)
[2021-12-06 14:05] VITALS: BP 113/61
[2021-12-08 14:09] LABS: EBV AB TO NUCLEAR ANTIGEN 40.3 U/mL (0.0-17.9); EBV VIRAL CAPSID AG IgM <36.0 U/mL (0.0-35.9)
== END 2021-12-06 14:11 | disposition home or self-care (01) ==
LOC: M ED 11:19
DX: R21 Rash and other nonspecific skin eruption (principal); Z79.899 Other long term (current) drug therapy
CPT/HCPCS: 80048; 80076; 85025; 85652; 86140; 86308; 86618; 86664; 86665; 96361; 96374; 96375; 99284; J1200; J1885

== ENCOUNTER → 2022-04-20 | Outpatient (CLI) | payer BC ==
[~2022-04-20] MED LIST changes: +FAMO10TA50 PO; +HYDR-643 PO
[2022-04-20 18:17] LABS: HEMATOCRIT 36.3 % (36.0-47.0); HEMOGLOBIN 12.2 g/dl (12.0-15.5); MEAN CORPUSCULAR HEMOGLOBIN 28.6 pg (27.0-33.0); MEAN CORPUSCULAR HGB CONC 33.6 g/dl (32.0-36.5); PLATELET COUNT, AUTOMATED 261 10^3/uL (150-450); RED BLOOD COUNT 4.27 10^6/uL (4.00-5.40); WHITE BLOOD COUNT 7.8 10^3/uL (4.0-10.0)
[2022-04-20 19:36] LABS: GC DNA AMPLIFICATION NEGATIVE (NEGATIVE)
[2022-04-20 19:54] LABS: HEPATITIS B SURFACE ANTIGEN NEGATIVE (NEGATIVE); HEPATITIS C VIRUS ABY INDEX < 0.0 INDEX (<0.8); HIV 1&2 SCREEN CENTAUR NEGATIVE (NEGATIVE)
== END ==
LOC: M PLALAB 14:53
PROVIDERS: ATTEND Advanced Practice Midwife
DX: Z34.91 Encounter for supervision of normal pregnancy, unspecified, first trimester (principal)

== ENCOUNTER → 2022-06-14 | Outpatient (CLI) | payer BC | LOC: M WHC 09:29 | PROVIDERS: ATTEND Obstetrics & Gynecology | DX: Z34.92 Encounter for supervision of normal pregnancy, unspecified, second trimester (principal); Z3A.20 20 weeks gestation of pregnancy ==

== ENCOUNTER → 2022-08-10 | Outpatient (CLI) | payer BC | LOC: M WHC 13:12 | PROVIDERS: ATTEND Advanced Practice Midwife | DX: Z34.93 Encounter for supervision of normal pregnancy, unspecified, third trimester (principal); Z3A.28 28 weeks gestation of pregnancy ==

== ENCOUNTER → 2022-10-07 | Outpatient (REF) | payer BC | LOC: M PLALAB 09:12 | PROVIDERS: ATTEND Obstetrics & Gynecology | DX: Z36.85 Encounter for antenatal screening for Streptococcus B (principal); Z3A.36 36 weeks gestation of pregnancy ==

== ENCOUNTER 2022-10-23 19:31 | Inpatient (IN) | payer BC ==
[~2022-10-23] VITALS: Ht 160 cm; Wt 76.3 kg
[2022-10-23 19:55] VITALS: BP 137/72
[2022-10-23] MEDS ORDERED: OXYTOCIN DRIP 30 UNITS in IV 1 EA IV PRN (20:10)
[2022-10-23] MEDS ORDERED: LIDOCAINE 1% MDV 20ML VIAL INFIL PRN (20:10)
[2022-10-23 20:48] LABS: HEMATOCRIT 32.1 % (36.0-47.0); HEMOGLOBIN 10.1 g/dl (12.0-15.5); MEAN CORPUSCULAR HEMOGLOBIN 23.6 pg (27.0-33.0); MEAN CORPUSCULAR HGB CONC 31.5 g/dl (32.0-36.5); PLATELET COUNT, AUTOMATED 196 10^3/uL (150-450); RED BLOOD COUNT 4.28 10^6/uL (4.00-5.40)
[2022-10-23] MEDS: miSOPROStol 50MCG 1/2 TABLET SL SCH (20:48)
[2022-10-24] VITALS (30 sets, daily range): BP systolic 100–159; BP diastolic 53–83
[2022-10-24] MEDS: miSOPROStol 50MCG 1/2 TABLET SL SCH ×3 (00:50→09:08)
[2022-10-24] MEDS ORDERED: LR 1,000 ML IV SCH (10:15)
[2022-10-24] MEDS ORDERED: OXYTOCIN DRIP 30 UNITS in IV 1 EA IV SCH (10:15)
[2022-10-24] MEDS ORDERED: HOME MED LIST COMPLETE! XX SCH (13:10)
[2022-10-24] MEDS ORDERED: PRENTAB9 PO (13:10)
[2022-10-24] MEDS ORDERED: ONDANSETRON 4MG 2ML VIAL IV PRN (15:35)
[2022-10-24] MEDS ORDERED: NALOXONE INJ 0.4MG/1ML VIAL IV PRN (15:35)
[2022-10-24] MEDS ORDERED: LR 500 ML IV PRN (15:35)
[2022-10-24] MEDS ORDERED: ePHEDrine SULFATE 25 MG/5 ML(5MG/ML) SYRINGE IVP PRN (15:35)
[2022-10-24] MEDS ORDERED: EPIDURAL/PCA KEYS XX PRN (15:35)
[2022-10-24] MEDS ORDERED: FENTANYL/ROPIVACAINE/NACL BAG 100 ML EPIDURAL SCH (15:35)
[2022-10-24] MEDS ORDERED: diphenhydrAMINE 50MG/ML VIAL IV PRN (15:35)
[2022-10-24] MEDS ORDERED: RHOGAM 300MCG (1500IU) INJ IM SCH (20:35)
[2022-10-24] MEDS ORDERED: DIBUCAINE 1% OINTMENT 30GM TOP PRN (20:35)
[2022-10-24] MEDS ORDERED: ACETAMINOPHEN 500 MG TAB PO PRN (20:35)
[2022-10-24] MEDS ORDERED: DOCUSATE SODIUM 100MG CAPSULE PO PRN (20:35)
[2022-10-24] MEDS ORDERED: IBUPROFEN 600MG TAB PO PRN (20:35)
[2022-10-24] MEDS ORDERED: METHYLERGONOVINE MALEATE 0.2 MG TAB PO PRN (20:35)
[2022-10-24] MEDS ORDERED: IBUPROFEN 800 MG TAB PO PRN (20:35)
[2022-10-24] MEDS ORDERED: ACETAMINOPHEN TAB 650MG DOSE (2X325MG) PO PRN (20:35)
[2022-10-24] MEDS ORDERED: OXYTOCIN 30UNITS IN 0.9% NaCl 500ML IV BAG As Ordered ONE (20:38)
[2022-10-25 01:51] VITALS: BP 100/52
[2022-10-25 06:01] VITALS: BP 103/50
[2022-10-25] MEDS: PRENATAL VITAMINS CHEWABLE TABLET PO SCH (09:15)
[2022-10-25 18:12] VITALS: BP 114/58
[2022-10-26 06:00] VITALS: BP 108/82
[2022-10-26] MEDS: PRENATAL VITAMINS CHEWABLE TABLET PO SCH (07:57)
[2022-10-26] MEDS ORDERED: MEASLES,MUMPS,RUBELLA VACCINE INJ (MMR-II) SC.IMMUN ONE (09:00)
== END 2022-10-26 11:42 | disposition home or self-care (01) | DRG 560 ==
LOC: M LDO 19:31 → M LDI 20:06 → M OBS 10-24 22:40
PROVIDERS: ADMIT Specialist; ATTEND Specialist
PROC: 3E0P7GC Introduction of Other Therapeutic Substance into Female Reproductive, Via Natural or Artificial Opening (ICD-10-PCS; 2022-10-23)
PROC: 10E0XZZ Delivery of Products of Conception, External Approach (ICD-10-PCS; principal; 2022-10-24)
PROC: 10907ZC Drainage of Amniotic Fluid, Therapeutic from Products of Conception, Via Natural or Artificial Opening (ICD-10-PCS; 2022-10-24)
DX: O80 Encounter for full-term uncomplicated delivery (principal); Z37.0 Single live birth; Z3A.39 39 weeks gestation of pregnancy